=== PATIENT | male | born 1940 | race Caucasian/White ===

== ENCOUNTER → 2016-08-17 | Outpatient (REF) | LOC: ZLAB.WCH 15:38 | DX: Z01.89 Encounter for other specified special examinations (principal) ==

== ENCOUNTER → 2016-09-13 | Outpatient (REF) | LOC: ZLAB.WCH 15:19 | DX: Z01.89 Encounter for other specified special examinations (principal) | CPT/HCPCS: G0103 ==

== ENCOUNTER → 2016-12-31 | Outpatient (REF) | LOC: ZLAB.WCH 19:40 | DX: Z01.89 Encounter for other specified special examinations (principal) ==

== ENCOUNTER → 2017-03-25 | Outpatient (REF) | LOC: ZLAB.WCH 18:18 | DX: Z01.89 Encounter for other specified special examinations (principal) ==

== ENCOUNTER → 2017-05-28 | Outpatient (REF) | LOC: ZLAB.WCH 17:34 | DX: Z01.89 Encounter for other specified special examinations (principal) ==

== ENCOUNTER → 2017-06-11 | Outpatient (CLI) | payer MEDICARE, BC | LOC: MC.RAD 11:40 | DX: Z01.89 Encounter for other specified special examinations (principal) ==

== ENCOUNTER → 2017-06-14 | Outpatient (CLI) | payer MEDICARE, BC | LOC: MC.RAD 13:00 | DX: N63.20 Unspecified lump in the left breast, unspecified quadrant (principal) ==

== ENCOUNTER → 2017-07-03 | Outpatient (REF) | LOC: ZLAB.WCH 18:09 | DX: Z01.89 Encounter for other specified special examinations (principal) ==

== ENCOUNTER → 2017-11-12 | Outpatient (REF) ==
[2017-11-12 18:37] LABS: PSA-TOTAL 0.33 ng/mL (0-4)
[2017-11-12 19:52] LABS: THYROID STIMULATING HORMONE 1.38 uIU/mL (0.465-4.680)
== END ==
LOC: ZLAB.WCH 17:51
PROVIDERS: Family Medicine
DX: Z01.89 Encounter for other specified special examinations (principal)
CPT/HCPCS: G0103

== ENCOUNTER → 2018-04-22 | Outpatient (REF) | LOC: ZLAB.WCH 18:14 | DX: Z01.89 Encounter for other specified special examinations (principal) ==

== ENCOUNTER → 2018-08-08 | Outpatient (REF) | LOC: ZLAB.WCH 19:08 | DX: Z01.89 Encounter for other specified special examinations (principal) | CPT/HCPCS: G0103 ==

== ENCOUNTER → 2018-10-17 | Outpatient (CLI) | payer MEDICARE, BC | LOC: MC.RAD 14:00 | DX: N62 Hypertrophy of breast (principal); N63.0 Unspecified lump in unspecified breast ==

== ENCOUNTER → 2020-07-06 | Outpatient (CLI) | payer MEDICARE, BC | LOC: MC.RAD 13:59 | DX: D24.9 Benign neoplasm of unspecified breast (principal) ==

== ENCOUNTER → 2022-04-26 | Outpatient (CLI) | payer MEDICARE | LOC: MC.RAD 13:00 | DX: N62 Hypertrophy of breast (principal) ==